=== PATIENT | female | born 1980 | race African-American/Black ===

== ENCOUNTER 2023-01-28 06:42 | Emergency (ER) | payer MEDICAID ==
[~2023-01-28] VITALS: Ht 185.4 cm; Wt 87.6 kg
[2023-01-28 07:27] VITALS: BP 164/86; PULSE 65; RESP 16; TEMP 97.9; O2SAT 100
[2023-01-28] MEDS ORDERED: CEPH500C PO (07:58)
[2023-01-28] MEDS ORDERED: TOB03OS OP (07:58)
== END 2023-01-28 08:05 | disposition home or self-care (01) ==
LOC: ER 06:42
DX: I88.9 Nonspecific lymphadenitis, unspecified (principal); H10.31 Unspecified acute conjunctivitis, right eye; I10 Essential (primary) hypertension; Z79.2 Long term (current) use of antibiotics; Z79.899 Other long term (current) drug therapy

== ENCOUNTER 2024-07-21 14:07 | Emergency (ER) | payer MEDICAID ==
[~2024-07-21] VITALS: Ht 182.9 cm; Wt 88.1 kg
[~2024-07-21 14:07] MED LIST: CEPH500C PO; TOB03OS OP
--- NOTE | 2024-07-21 15:39 | ED.PDOC ---
History of Present Illness HPI Comments 44Y F with PMHx HTN presents to ED for chief complaint left sided-headache x3days with left-sided facial numbness. Pt describes headache as tightness. Pain worsens with laying down. No other symptoms reported. She states the pain radiates into the left lateral neck creates a bandlike pressure on the left side of her face. The pain waxes and wanes. May need to increase his when she feels quite stressed was. She has no other complaints with the vision changes, pain with neck movement, fever, chills, sweats, nausea or vomiting. Denies any other palliative provocative factors. Denies modifying factors. Denies radiation of her symptoms. Chief Complaint: Headache Time Seen by MD: 15:25 Primary Care Provider: NONE Reviewed Notes: Nurses Notes, Medications, Allergies Allergies: Coded Allergies: NO KNOWN ALLERGIES (Unverified , 01/28/23) Home Meds Active Scripts Cephalexin Monohydrate (Cephalexin) 500 Mg Cap, 1 CAP PO QID, #28 CAP Prov:DELROY GUTIERRES 01/28/23 Tobramycin Sulfate (Tobrex) [address], 2 DROP OP QID, #5 ML Prov:DELROY GUTIERRES 01/28/23 Information Source: Patient Mode of Arrival: Ambulatory Severity: Mild Timing: Days Duration: Since onset Prehospital treatment: None Past Medical History PAST MEDICAL HISTORY: HTN Surgical History: Denies all surgeries COMMUNITY EDUCATION SPECIALIST History: Denies all COMMUNITY EDUCATION SPECIALIST Hx Family History Family History: Reviewed,noncontributory to illness Social History Smoker: Non-Smoker Alcohol: Denies ETOH Use Drugs: Denies Drug Use Lives In: Home Constitutional: denies: chills, diaphoresis, fatigue, fever, malaise, sweats, weakness, others EENTM: denies: blurred vision, double vision, ear bleeding, ear discharge, ear drainage, ear pain, ear ringing, eye pain, eye redness, hearing loss, mouth pain, mouth swelling, nasal discharge, nose bleeding, nose congestion, nose gillian n, photophobia, tearing, throat pain, throat swelling, voice changes, others Respiratory: denies: cough, hemoptysis, orthopnea, SOB at rest, shortness of breath, SOB with excertion, stridor, wheezing, others Cardiovascular: denies: chest pain, dizzy spells, diaphoresis, Dyspnea on exertion, edema, irregular heart beat, left arm pain, lightheadedness, palpitations, PND, syncope, others Gastrointestinal: denies: abdomen distended, abdominal pain, blood streaked bowels, constipated, diarrhea, dysphagia, difficulty swallowing, hematemesis, melena, nausea, poor appetite, poor fluid intake, rectal bleeding, rectal pain, vomiting, others Genitourinary: denies: abnormal vagina bleeding, burning, dyspareunia, dysuria, flank pain, frequency, hematuria, incontinence, pain, , vagina discharge, urgency, others Neurological: reports: headache, left sided numbness; denies: dizziness, fainting, left sided weakness, numbness, paresthesia, pre-existing deficit, right sided numbness, right sided weakness, seizure, speech problems, tingling, tremors, weakness, others Musculoskeletal: denies: back pain, gout, joint pain, joint swelling, muscle pain, muscle stiffness, neck pain, others Integumetry: denies: bruises, change in color, change in hair/nails, dryness, laceration, lesions, lumps, rash, wounds, others Allergic/Immunocompromised: denies: Difficulty Healing, Frequent Infections, Hives, Itching, others Hematologic/Lymphatic: denies: anemia, blood clots, easy bleeding, easy bruising, swollen glands, others Endocrine: denies: excessive hunger, excessive sweating, excessive thirst, excessive urination, flushing, intolerance to cold, intolerance to heat, unexplained weight gain, unexplained weight loss, others Psychiatric: denies: anxiety, bipolar disorder, depression, hopeless, panic disorder, schizophrenia, sleepless, suicidal, others All Other Systems: Reviewed and Negative Physical Exam General Appearance: No Apparent Distress, Normal HEENT: Normal ENT Inspection, Pharynx Normal, TMs Normal Neck: Limited Range of Motion, Other (mild tenderness to lateral left side) Respiratory: Chest Non-Tender, Lungs Clear, No Accessory Muscle Use, No Respiratory Distress, Normal Breath Sounds Cardiovascular: No Edema, No Murmur, No Gallop, Normal Peripheral Pulses, Regular Rate/Rhythm Breast Exam: Deferred Gastrointestinal: No Organomegaly, Non Tender, Normal Bowel Sounds, Soft Genitalia: Deferred Pelvic: Deferred Rectal: Deferred Extremities: No calf tenderness, Normal capillary refill, Normal inspection, Normal range of motion, Non-tender Musculoskeletal : Apperance: Normal Neurologic: Alert, compo caster II-XII nml as Tested, No Motor Deficits, Normal Affect, Normal Mood, No Sensory Deficits Cerebellar Function: NOT DONE Reflexes: NOT DONE Skin: Dry, Normal Color, Warm Lymphatic: NOT DONE Was a procedure done? Was a procedure done?: No Differential Dx Considerations may include: Migraine headache tension headache cluster headache. X-Ray, Labs, Meds, VS Vital Signs Date Time Temp Pulse Resp B/P (MAP) Pulse Ox O2 Delivery O2 Flow Rate FiO2 07/21/24 16:42 97.8 79 16 173/94 (120) 98 97.8 07/21/24 15:44 Room Air* 0 21 07/21/24 14:54 72 07/21/24 14:52 98.1 91 16 173/93 (119) 100 98.1 Lab Test 07/21/24 16:20 07/21/24 14:43 Range/Units White Blood Count 5.6 4.4-10.8 10^3/uL Red Blood Count 4.05 4.0-5.20 10^6/uL Hemoglobin 14.2 12.2-16.2 g/dL Hematocrit 41.2 36.0-46.0 % Mean Corpuscular Volume 101.8 H 80.0-100.0 fL Mean Corpuscular Hemoglobin 35.0 H 28.0-32.0 pg Mean Corpuscular Hemoglobin Concent 34.4 32.0-36.0 g/dL Red Cell Distribution Width 13.6 11.8-14.3 % Platelet Count 266 140-450 10^3/uL Mean Platelet Volume 8.2 6.9-10.8 fL Neutrophils (%) (Auto) 60.6 37.0-80.0 % Lymphocytes (%) (Auto) 33.0 10.0-50.0 % Monocytes (%) (Auto) 5.3 0.0-12.0 % Eosinophils (%) (Auto) 0.7 0.0-7.0 % Basophils (%) (Auto) 0.4 0.0-2.0 % Neutrophils # (Auto) 3.4 1.6-8.6 10 ^3/uL Lymphocytes # (Auto) 1.8 0.4-5.4 10 ^3/uL Monocytes # (Auto) 0.3 0-1.3 10 ^3/uL Eosinophils # (Auto) 0 0-0.8 10 ^3/uL Basophils # (Auto) 0 0-0.2 10 ^3/uL Nucleated Red Blood Cells 0.2 % Erythrocyte Sedimentation Rate 12 0-20 mm/hr Sodium Level 139 136-145 mmol/L Potassium Level 3.8 3.5-5.1 mmol/L Chloride Level 109 H 98-107 mmol/L Carbon Dioxide Level 23 20-31 mmol/L Anion Gap 7 5-15 Blood Urea Nitrogen 9 9-23 mg/dL Creatinine 0.91 0.550-1.02 mg/dL Glomerular Filtration Rate Calc 80 >90 mL/min BUN/Creatinine Ratio 9.9 L 10.0-20.0 Serum Glucose 92 74-106 mg/dL Calcium Level 9.7 8.7-10.4 mg/dL Total Bilirubin 0.9 0.2-1.0 mg/dL Aspartate Amino Transferase (AST) 23 13-40 U/L Alanine Aminotransferase (ALT) 11 7-40 U/L Alkaline Phosphatase 70 46-116 U/L Total Protein 7.8 5.7-8.2 g/dL Albumin 5.0 H 3.2-4.8 g/dL POC Glucose 100 70-106 mg/dl Current Medications Medications (Trade) Dose Ordered Sig/Kary Route Start Time Stop Time Status Last Admin Ibuprofen (Motrin Tablet) 600 mg ONCE ONCE PO 07/21/24 17:00 07/21/24 17:01 DC 07/21/24 16:57 The patient was called 3 times for reassessment but did not respond. The patient eloped. X-Ray, Labs, Meds, VS Comment This 43-year-old female presents secondary to left-sided headache. She says her headache radiates of the left side of her neck up to have chronic bandlike headache. The pain is intermittent and associated with stress. Past waxes and wanes. CBC, CMP, ESR, UA, urine and CT head were ordered. CBC was benign. Time of 1ST Reevaluation: 15:55 Reevaluation 1ST: Unchanged Patient Education/Counseling: Diagnosis, Treatment Family Education/Counseling: No Family Present Departure 1 Departure Time of Disposition: 19:27 Impression: Primary Impression: Headache Disposition: 07 LEFT AWOL/ELOPED Condition: Serious Discharged With: Self Comments Patient denies show up for head CT. She eloped. Critical Care Note Critical Care Time?: No Stability Stability form required: No Heart Score Heart Score: Heart Score Response (Comments) Value History N/A 0 EKG N/A 0 Age N/A 0 Risk Factors N/A 0 Troponin N/A 0 Total 0 I personally scribed for KAJAL SANON MD ([email or web address]) on 07/21/24 at 15:39. Electronically submitted by Smitha Mena ([facility]). I personally scribed for KAJAL SANON MD ([email or web address]) on 07/21/24 at 15:46. Electronically submitted by Smitha Mena ([email or web address]). KAJAL SANON MD Jul 21, 2024 15:39 KANNAN MALIK MD Jul 21, 2024 19:28
[2024-07-21] MEDS: LORazepam 0.5 MG TAB PO ONE (15:45)
[2024-07-21 16:42] VITALS: BP 173/94; PULSE 79; RESP 16; TEMP 97.8; O2SAT 98
[2024-07-21 16:48] LABS: Basophils # (auto) 0 10 ^3/uL (0-0.2); Basophils % (auto) 0.4 % (0.0-2.0); Eosinophils # (auto) 0 10 ^3/uL (0-0.8); Eosinophils % (auto) 0.7 % (0.0-7.0); Hematocrit 41.2 % (36.0-46.0); Hemoglobin 14.2 g/dL (12.2-16.2); Lymphocytes # (auto) 1.8 10 ^3/uL (0.4-5.4); Mean Corpuscular Hgb Conc. 34.4 g/dL (32.0-36.0); Mean Corpuscular Volume 101.8 fL (80.0-100.0); Monocytes # (auto) 0.3 10 ^3/uL (0-1.3); Monocytes % (auto) 5.3 % (0.0-12.0); Neutrophils # (auto) 3.4 10 ^3/uL (1.6-8.6); Neutrophils % (auto) 60.6 % (37.0-80.0); Nucleated Red Blood Cells % 0.2 %; Platelet Count (auto) 266 10^3/uL (140-450); Red Blood Cells 4.05 10^6/uL (4.0-5.20); Red Cell Distribution Width 13.6 % (11.8-14.3); White Blood Cell 5.6 10^3/uL (4.4-10.8)
[2024-07-21] MEDS: IBUPROFEN 600 MG TAB PO ONE (16:57)
[2024-07-21 17:05] LABS: Alanine Aminotransferase 11 U/L (7-40); Alkaline Phosphatase 70 U/L (46-116); Anion Gap 7 (5-15); Aspartate Aminotransferase 23 U/L (13-40); BUN/Creatinine Ratio 9.9 (10.0-20.0); Bilirubin, Total 0.9 mg/dL (0.2-1.0); Blood Urea Nitrogen 9 mg/dL (9-23); Calcium 9.7 mg/dL (8.7-10.4); Carbon Dioxide 23 mmol/L (20-31); Chloride 109 mmol/L (98-107); Glucose 92 mg/dL (74-106); Potassium 3.8 mmol/L (3.5-5.1); Sodium 139 mmol/L (136-145); Total Protein 7.8 g/dL (5.7-8.2)
[2024-07-21 19:14] LABS: Erythrocyte Sedimentation Rate 12 mm/hr (0-20)
--- NOTE | 2024-07-24 12:10 | ECG ---
[facility] Test Date: 2024-07-21 Test Time: 14:54:48 Pat Name: FERMIN CUEVAS Department: ER Room: Gender: F Tutoring Assistant: CHANA : [id number] Requested By: KAJAL SANON Order Number: [id number] Reading MD: Measurements Intervals [place] Rate: 72 P: 0 [place]: 0 QRS: 67 QRSD: 84 T: 44 QT: 396 QTc: 434 Interpretive Statements Atrial flutter with predominant 4:1 AV block RSR' in V1 or V2, right VCD or RVH Please click the below link to view image of tracing.
== END 2024-07-21 18:56 | disposition left against medical advice (07) ==
LOC: ER 14:13
DX: R51.9 Headache, unspecified (principal); I10 Essential (primary) hypertension; Z79.899 Other long term (current) drug therapy
CPT/HCPCS: 36415; 80053; 82962; 85025; 85652; 93005